=== PATIENT | male | born 1960 | race Caucasian/White ===

== ENCOUNTER 2022-10-25 10:17 | Outpatient (CLI) | payer OTHER, SELFPAY ==
[2022-10-25 14:19] LABS: PSA Screen* 0.39 ng/mL (0.10-4.00)
== END 2022-10-25 10:18 | disposition home or self-care (01) ==
PROVIDERS: PCP Family Medicine; Visit Provider Family Medicine
DX: Z00.00 Encounter for general adult medical examination without abnormal findings (principal); Z12.5 Encounter for screening for malignant neoplasm of prostate; I10 Essential (primary) hypertension
CPT/HCPCS: 84153